=== PATIENT | female | born 1950 | race Caucasian/White ===

== ENCOUNTER → 2024-01-29 17:48 | Outpatient (REF) | payer MEDICARE, OTHER, SELFPAY | LOC: WDC 17:48 | PROVIDERS: ATTENDING PHYSICIAN Family Medicine | DX: Z12.31 Encounter for screening mammogram for malignant neoplasm of breast (principal) | CPT/HCPCS: 77063; 77067 ==

== ENCOUNTER → 2024-02-06 09:48 | Outpatient (REF) | payer MEDICARE, OTHER, SELFPAY | LOC: WDC 09:48 | PROVIDERS: ATTENDING PHYSICIAN Family Medicine | DX: R92.8 Other abnormal and inconclusive findings on diagnostic imaging of breast (principal) | CPT/HCPCS: 76642 ==

== ENCOUNTER → 2024-08-04 14:54 | Outpatient (REF) | payer MEDICARE, OTHER, SELFPAY | LOC: WDC 14:54 | PROVIDERS: ATTENDING PHYSICIAN Family Medicine | DX: R92.8 Other abnormal and inconclusive findings on diagnostic imaging of breast (principal) | CPT/HCPCS: 77061; 77065 ==

== ENCOUNTER → 2025-01-19 14:44 | Outpatient (REF) | payer MEDICARE, OTHER, SELFPAY | LOC: WDC 14:44 | PROVIDERS: ATTENDING PHYSICIAN Family Medicine | DX: Z12.31 Encounter for screening mammogram for malignant neoplasm of breast (principal) | CPT/HCPCS: 77063; 77067 ==

== ENCOUNTER 2025-01-21 11:21 | Emergency (ER) | payer MEDICARE, OTHER, SELFPAY ==
[2025-01-21 11:22] VITALS: BP 170/95
--- NOTE | 2025-01-21 11:32 | EDRN ---
Patient in the room, was able to stand and get into bed without difficulty
--- NOTE | 2025-01-21 12:00 | EDRN ---
Patient ambulated to the bathroom and back in bed without difficulty
--- NOTE | 2025-01-21 12:46 | ED.GENMED ---
History of Present Illness
General
Chief Complaint: Fall
Source: patient
Exam Limitations: none
Time Seen by Provider: 01/21/25 11:28
Nursing documentation reviewed up to this point in time: agreed with
History of Present Illness
History of Present Illness:
The patient is a pleasant 74-year-old female who reports that she was bending forward to pick something off the ground, stumbled and fell backwards. Patient reports that when she tried to get up, she fell again. Patient reports that she fell onto
her right side. She did not hit her head. She denies neck pain, chest pain and back pain. Patient reports pain near her right clavicle area and right shoulder. Patient also reports right hip pain. She reports she is able to walk but with some
discomfort. Patient denies weakness and numbness. She was previously feeling well. Patient is not on blood thinners. Patient reports that her right hip pain gets slightly worse when she turns her leg out but otherwise could flex and extend her
right hip without difficulty.
Past History
Past History
ED Past Medical History: Hypercholesterolemia
ED Past Surgical History: Orthopedic
Social History
Tobacco: Non-smoker
Drug: None
Personal:
Living: with family
Employment: Other
Family History
Family History: CAD
Review of Systems
Review of Systems
Allergies reviewed?: Yes
All Other Systems: ROS reviewed and negative except as documented in HPI and ROS
Constitutional: Reports no symptoms
EENT: Reports no symptoms
Respiratory: Reports no symptoms
Cardiac: Reports no symptoms
ABD/GI: Reports no symptoms
: Reports no symptoms
Musculoskeletal: Reports joint pain
Skin: Reports no symptoms
Neurological: Reports no symptoms
Endocrine: Reports no symptoms
Hematologic/Lymphatic: Reports no symptoms
Psychiatric: Reports no symptoms
Phy Exam
Physical Exam
Physical Exam:
Physical Exam
General: no apparent distress, not acutely ill. Atraumatic appearing face and head
Neck: supple. Nontender C-spine
Heart: s1/s2 regular rate and rhythm, no chest wall tenderness. No vertebral spine tenderness
Lungs: no acute respiratory distress. clear bilaterally
Abdomen: Soft, nontender
Neuro: alert and oriented. no focal neurological deficits. 5 out of 5 strength in all extremities. Cranial nerves equal and symmetric bilaterally
Skin: no rash
Psychiatric: well kept. interactive and cooperative
Extremities: Patient has no deformity or swelling of chest wall, nor right upper or lower extremity. Patient able to fully extend at right shoulder with minimal pain. Patient has mild discomfort in right hip when she rotates
her hip outward but is able to fully extend and flex right hip and right knee with minimal pain. Strong pulses in bilateral upper and lower extremities
Course
Orders/Labs/Results
Orders:
Orders
01/21/25 11:49
Hip, Right 2-3 Views [CR Hip - RT w/wo Pel 2-3 Vw*] Urgent
Comment:
Reason For Exam: fall, R hip pain
Include a pelvis x-ray?: Yes
01/21/25 11:50
Clavicile, Right Complete CR [CR Clavicle - Right Complete] Urgent
Comment:
Reason For Exam: R shoulder and clavicle pain
Shoulder, Right 2 Views [CR Shoulder - Right Min 2 View] Urgent
Comment:
Reason For Exam: fall, R shoulder and upper arm pain
01/21/25 13:23
Acetaminophen [Tylenol] 1,000 mg PO NOW STA
Vital Signs
Initial and Last Documented VS:
Initial Vital Signs
Temp Pulse Resp BP Pulse Ox
97.8 F 78 18 170/95 99
01/21/25 11:22 01/21/25 11:22 01/21/25 11:22 01/21/25 11:22 01/21/25 11:22
Last Documented Vital Signs
Temp Pulse Resp BP Pulse Ox
97.8 F 78 18 170/95 99
01/21/25 11:22 01/21/25 11:22 01/21/25 11:22 01/21/25 11:22 01/21/25 11:22
MDM/Problems Addressed
Differential Diagnosis Includes:
Right hip dislocation, right hip fracture, right humeral fracture, right clavicle fracture
MDM/Problems Addressed:
Patient presents with acute right hip and right shoulder pain after stumble and fall
Acute Exacerbation and/or Progression of Chronic Illness:
Patient is acutely hypertensive likely due to pain and anxiety
Acute Exacerbation and/or Progression of Chronic Illness: HTN
*Radiology
Radiology exam reviewed: preliminary read by ED provider (Right clavicle, right shoulder and right hip and pelvis x-rays reviewed by me. No acute fracture seen.) and radiology read reviewed
*Pulse Oximetry
Patient hypoxic: no
*EKG
Interpreted by ED Provider?: NA
*Ammunition And Explosives Handler Interpretation
Rate: Ammunition And Explosives Handler- N/A
*Critical Care Note
Total Time (30-74mins, 75-104mins- exclusive of procedures): Not Applicable
Data Reviewed
Review of Other/Old Records Reveals: Testing (Stress echo done in 2021 which shows moderate to low risk)
Source: patient
Update Note
Update Note:
1:20 PM patient up walking to the bathroom without difficulty. Bearing weight on bilateral legs. X-ray showed no evidence of fracture. Patient likely has contusion.
ED Attending Note
-
Portions of this chart may have been created with voice recognition software.� Occasional wrong word or��sound alike� substitutions may have occurred due to the inherent limitations of voice recognition software.
Discharge Plan
Departure
Patient Disposition: Home (Routine Discharge)
Date of Disposition: 01/21/25
Time of Disposition: 13:23
Patient with high blood pressure during this ER visit?: Yes
Condition: Good
Covid-19: Not Applicable
Discharge Problem:
Fall, Contusion of right shoulder region, Contusion of right hip
Instructions: Contusion (DC), Preventing falls in adults, BLOOD PRESSURE
Prescriptions:
No Action
meclizine 25 mg tablet
25 mg PO TID PRN (Reason: dizziness) Qty: 14 0RF
Referrals:
Lorie Andrews MD [Family Provider] -
Activity Restrictions/Additional Instructions:
Take 1000 mg of Tylenol every 4-6 hours for pain. Follow-up with your doctor in 3 days if you are still having significant pain in your shoulder and/or hip.
Interventions
Interventions:
*Risk Screen - Suicide Last Done: 01/21/25 11:22
*General Assessment Last Done: 01/21/25 11:22
*Neglect/Abuse Screening Last Done: 01/21/25 11:22
*ED COVID-19 Vaccine History Last Done: 01/21/25 11:22
ED-Musculoskeletal Assessment Last Done: 01/21/25 12:49
ED- Neurological Assessment Last Done: 01/21/25 12:49
ED-Skin Assessment Last Done: 01/21/25 12:49
Discharge Date and Time
Print Language: ARMENIAN
--- NOTE | 2025-01-21 13:21 | EDRN ---
Patient updated on things, Dr. myles in speaking with patient.
[2025-01-21] MEDS: TYLENOL 1000 MG PO (13:27)
== END 2025-01-21 13:46 | disposition home or self-care (01) ==
LOC: EMR 11:21
PROVIDERS: EMERGENCY PHYSICIAN Emergency Medicine; FAMILY PHYSICIAN Family Medicine
DX: S40.011A Contusion of right shoulder, initial encounter (principal); S70.01XA Contusion of right hip, initial encounter; W01.0XXA Fall on same level from slipping, tripping and stumbling without subsequent striking against object, initial encounter; E78.00 Pure hypercholesterolemia, unspecified; I10 Essential (primary) hypertension
CPT/HCPCS: 99284; 73000; 73030; 73502

== ENCOUNTER 2025-01-29 08:45 | Emergency (ER) | payer MEDICARE, OTHER, SELFPAY ==
[2025-01-29] VITALS (7 sets, daily range): BP systolic 160–217; BP diastolic 59–92; BMI 28.4
--- NOTE | 2025-01-29 08:56 | ED.GENMED ---
History of Present Illness
General
Chief Complaint: Musculo-Skeletal Complaint
Source: patient, records and ambulance crew
Exam Limitations: none
Time Seen by Provider: 01/29/25 08:47
Nursing documentation reviewed up to this point in time: agreed with
History of Present Illness
History of Present Illness:
74-year-old female with a past medical history as noted presents to the ER for evaluation of right hip pain. Patient had a fall last week was seen in this emergency room; she said she had hip pain at that time but had normal x-rays. Since then she
reports increasing pain in the right hip/groin and today was having trouble walking due to the pain which prompted her to return to the emergency room. Pain is located in the right lateral hip/buttock and radiates towards the right groin. Worse
with weightbearing, no relieving factors noted�took 4 Advil this morning and applied lidocaine patches without adequate pain control. She denies any associated abdominal pain. She denies any associated urinary symptoms. She has not had any
radicular symptoms/shooting pains. No numbness or weakness in the leg. She denies any other complaints.
Past History
Past History
ED Past Medical History: Hypercholesterolemia
ED Past Surgical History: Orthopedic
Social History
Tobacco: Non-smoker
Drug: None
Personal:
Living: with family
Employment: Other
Family History
Family History: CAD
Review of Systems
Review of Systems
All Other Systems: ROS reviewed and negative except as documented in HPI and ROS
Constitutional: Denies fever or chills
Cardiac: Denies chest pain
ABD/GI: Denies abdominal pain
: Denies dysuria, flank pain or bleeding
Musculoskeletal: Reports joint pain; Denies back pain
Neurological: Denies headache, weakness or numbness
Phy Exam
Physical Exam
Physical Exam:
General: Awake, alert, appears uncomfortable
Head: Normocephalic, atraumatic
Eyes: Conjunctiva normal
Throat: Airway intact, handling secretions
Neck: Trachea midline, supple without meningismus
Lungs: Breathing comfortably no distress
Heart: Regular rate
Abd: Soft, non distended, nontender to deep palpation
Back: No tenderness in the thoracic or lumbar region
Neuro: Cranial nerves grossly intact, speech fluid
Skin: no rash, no bruising, no abrasions in the area of concern
Extremities: Patient has mild tenderness in the right lateral hip essentially over the trochanter; she has mild pain on range of motion of the right hip and significant pain with axial load on the right leg; no swelling or pain in the right knee or
ankle and strong distal pulse in the right lower extremity;no edema in extremities, equal pulses in all extremities
Scores
Heart Failure Risk
Heart Failure Risk Score: Not Applicable
Heart Score for Chest Pain Patients
STEMI patient?: Not applicable
Withdrawal Assessment of Alcohol
Withdrawal Assessment Completed?: Not applicable
Course
Orders/Labs/Results
Orders:
Orders
01/29/25 08:55
CT Abd/pel Without Iv Or Oral Urgent
Comment:
Reason For Exam: right hip/flank pain s/p fall
Oxycodone [Roxicodone] 5 mg PO NOW STA
01/29/25 10:04
Pt Eval And Treat Urgent
Activity Level: With Assistance
01/29/25 10:13
Case Management Consult ONCE
Case Management Consult: VN/Home Care
Vital Signs
Initial and Last Documented VS:
Initial Vital Signs
Temp Pulse Resp BP Pulse Ox
36.6 C 84 16 217/91 98
01/29/25 08:51 01/29/25 08:51 01/29/25 08:51 01/29/25 08:51 01/29/25 08:51
Last Documented Vital Signs
Temp Pulse Resp BP Pulse Ox
36.6 C 72 16 197/92 96
01/29/25 08:51 01/29/25 10:03 01/29/25 10:03 01/29/25 10:02 01/29/25 10:02
MDM/Problems Addressed
Differential Diagnosis Includes:
Right hip pain: Suspect likely secondary to trauma either an occult hip fracture, contusion, traumatic bursitis; other causes for hip pain including nephrolithiasis, UTI, appendicitis considered�intra-abdominal infection less likely with no
abdominal tenderness
MDM/Problems Addressed:
74-year-old female presents for evaluation of continued right hip pain for the past week; had a ground-level fall last week that seemed to precipitate this pain. X-rays in the ER last week negative but patient having increased pain and difficulty
weightbearing which prompted ER visit. Hypertensive otherwise normal vitals. Physical exam as above. Will plan to check CT to rule out occult fracture or other acute abnormality. Treat pain. Reassess after the above.
CT shows no occult fracture or other acute pathology. Patient says pain greatly improved with pain medication here. Suspect likely traumatic bursitis with some degree of underlying arthritis as she said she was having some pain in the hip even
prior to fall. Discussed with PT and case management to see if we can arrange for some home care/PT. Will refer to orthopedist for outpatient follow-up. Short-term pain control. Patient and daughter very comfortable with this plan. All
questions answered.
Acute Exacerbation and/or Progression of Chronic Illness:
Acutely hypertensive likely pain related�treat pain but hold on emergent antihypertensives for now
Acute Exacerbation and/or Progression of Chronic Illness: HTN
*Radiology
Radiology exam reviewed: radiology read reviewed
*Pulse Oximetry
Patient hypoxic: no
*Critical Care Note
Total Time (30-74mins, 75-104mins- exclusive of procedures): Not Applicable
Data Reviewed
Source: patient, records and ambulance crew
Patient Management
Discussion with other providers: Other (Discussed with PT, case management)
ED Attending Note
-
Portions of this chart may have been created with voice recognition software.� Occasional wrong word or��sound alike� substitutions may have occurred due to the inherent limitations of voice recognition software.
Discharge Plan
Departure
Patient with high blood pressure during this ER visit?: Yes
Discharge Problem:
Hip pain, right, Hypertension
Instructions: Hip Pain ED, BLOOD PRESSURE
Prescriptions:
New
oxycodone 5 mg tablet
5 mg PO TID PRN (Reason: Pain) Qty: 10 0RF
No Action
meclizine 25 mg tablet
25 mg PO TID PRN (Reason: dizziness) Qty: 14 0RF
Referrals:
Colleen Bryant I., DO [Active] - Call in 1-3 days for appt (Orthopedist)
Denver Kimble CRNP [Family Provider] -
Activity Restrictions/Additional Instructions:
Thank you for visiting the Emergency Department at [facility].
1. Please schedule a follow up appointment as directed. Call first thing tomorrow morning to make an appointment.
2. If indicated, please take your medications as instructed and indicated on discharge paperwork.
3. If any of your symptoms do not improve, or persist, or become more severe within 6-12 hours, please return to the emergency department for further care.
4. Please return to the emergency department if you develop a headache, neck pain/stiffness, fever greater than 100.4F, chest pain, shortness of breath, persistent nausea, vomiting, slurred speech, difficulty walking, numbness/tingling, weakness,
signs of infection or any other symptoms that are worrisome to you.
Please call [phone] if you have any questions.
Interventions
Interventions:
*Risk Screen - Suicide Last Done: 01/29/25 08:50
*General Assessment Last Done: 01/29/25 08:50
*Neglect/Abuse Screening Last Done: 01/29/25 08:50
*ED- Fall Risk Assessment Last Done: 01/29/25 08:50
*ED COVID-19 Vaccine History Last Done: 01/29/25 08:50
ED-Musculoskeletal Assessment Last Done: 01/29/25 08:50
Discharge Date and Time
Print Language: YAKUT
[2025-01-29] MEDS: ROXICODONE 5 MG PO ×2 (08:59→11:12)
[2025-01-29] MEDS: TYLENOL 1000 MG PO (11:14)
--- NOTE | 2025-01-29 12:06 | CM ---
Met with patient and her neighbor, Cece, at bedside in ED; CM consult completed
Patient reports she lives alone; 2 story home; bedroom and bath on 1st floor; bath has stall shower, independent with ADLs, drives; retired
Neighbor, Cece, reported she will transport patient home and check in on her
PT provided rolling walker and commode
Patient is agreeable to Home Health/VN; agency options identified; VN is preference; Referral sent to [facility] liaison via [place] [facility]
Plan: Discharge to home today with home health services and DME
[2025-01-29] MEDS: TORADOL 15 MG IM (12:29)
--- NOTE | 2025-01-29 13:06 | VNURNOTE ---
[facility] liaison met with patient at bedside. She was getting dressed with assist of the patient md do resident urgent care. Explained [facility] services, frequency, homebound status. Patient lives alone. Explained that [facility] will contact her within a few days
after DC to arrange visits. Patient agreeable. Referral placed in [facility].
== END 2025-01-29 13:04 | disposition home or self-care (01) ==
LOC: EMR 08:45
PROVIDERS: EMERGENCY PHYSICIAN Emergency Medicine; FAMILY PHYSICIAN Registered Nurse
DX: M25.551 Pain in right hip (principal); I10 Essential (primary) hypertension
CPT/HCPCS: 99284; 96372; 74176

== ENCOUNTER 2025-01-30 19:02 | Inpatient (IN) | payer MEDICARE, OTHER, SELFPAY ==
[2025-01-30 16:07] VITALS: BP 185/77
--- NOTE | 2025-01-30 16:25 | ED.GENMED ---
History of Present Illness
General
Chief Complaint: Extremity Pain (non-traumatic)
Source: patient and records
Exam Limitations: none
Time Seen by Provider: 01/30/25 16:15
History of Present Illness
History of Present Illness:
74yoF with a history of hyperlipidemia presenting via EMS for evaluation of R hip pain. Patient was seen in the ED on after a fall and right hip injury. She had normal x-rays at that time and was diagnosed with a contusion of the right hip.
Patient presented to the ED yesterday for ongoing pain. She had a CT scan which was negative for any occult fractures. She was evaluated by PT and case management with plan for home PT. She was given a prescription for oxycodone. Patient
presents again with severe pain to her right hip. She states she is unable to tolerate this pain and almost passed out due to the degree of pain. Pain is worse with movement and weightbearing. She has been taking oxycodone but it has not helped.
She denies any new trauma to the area. No paresthesias, incontinence, fevers. Patient's daughter recently had a hysterectomy and is unable to help take care of her at home.
Past History
Past History
ED Past Medical History: Hypercholesterolemia
ED Past Surgical History: Orthopedic
Social History
Tobacco: Non-smoker
Drug: None
Personal:
Living: with family
Employment: Other
Family History
Family History: CAD
Phy Exam
Physical Exam
Physical Exam:
Appears uncomfortable due to pain, nontoxic
General Physical Exam
General Presentation: well appearing
General Skin: warm and dry
General Habitus: elderly
General Mental: alert
ENT Exam
ENT Exam: normocephalic
Pulmonary Exam
Pulmonary Exam: no respiratory distress
Neurological Exam
Neurological Exam: alert
[place] Coma Scale
Eye Opening: Spontaneous
Verbal Response: Oriented
Motor Response: Obeys Commands
GCS Total Score: 15
Musculoskeletal Exam
Musculoskeletal Exam: other (R hip: Normal to inspection without deformity. No tenderness to palpation of the joint but pain elicited with ROM. No pitting edema to the leg. 2+ DP pulse. )
Skin Exam
Skin Exam: normal color and warm/dry
Psychiatric Exam
Psychiatric Exam: normal mood/affect
Course
Orders/Labs/Results
Orders:
Orders
01/30/25 16:24
HYDROmorphone [Dilaudid] 0.5 mg IV NOW STA
01/30/25 16:43
Complete Blood Count/With Diff Urgent
Comprehensive Metabolic Panel Urgent
01/30/25 17:42
Ketorolac [Toradol] 15 mg IV NOW STA
Abnormal Lab Results
01/30/25
16:43
WBC 13.7 H 10^3/uL
(4.8-10.8)
Plt Count 438 H 10^3/uL
(130-400)
Absolute Neuts (auto) 9.3 H 10^3/uL
(1.4-6.5)
Absolute Monos (auto) 1.0 H 10^3/uL
(0.1-0.6)
BUN 28 H mg/dl
(7-17)
Glucose 135 H mg/dl
(70-99)
01/30/25 16:43
01/30/25 16:43
Vital Signs
Initial and Last Documented VS:
Initial Vital Signs
Pulse Resp BP Pulse Ox
82 18 185/77 99
01/30/25 16:07 01/30/25 16:07 01/30/25 16:07 01/30/25 16:07
Last Documented Vital Signs
Pulse Resp BP Pulse Ox
82 18 185/77 99
01/30/25 16:07 01/30/25 16:07 01/30/25 16:07 01/30/25 16:07
MDM/Problems Addressed
Differential Diagnosis Includes:
74yoF here with ongoing R hip pain. 3rd ED visit for the same after a fall about 10 days ago. Seen in ED yesterday and had CT which was negative for occult fractures. Here with ongoing pain and ambulatory dysfunction. She is hypertensive with
otherwise stable vitals. RLE is neurovascularly intact. Differential diagnosis includes but is not limited to: Contusion, bursitis, muscular, doubt occult fracture given normal CT yesterday
Will check basic labs and give IV Dilaudid for pain. Will admit for PT evaluation and further management.
*Critical Care Note
Total Time (30-74mins, 75-104mins- exclusive of procedures): Not Applicable
ED Attending Note
-
Portions of this chart may have been created with voice recognition software.� Occasional wrong word or��sound alike� substitutions may have occurred due to the inherent limitations of voice recognition software.
Discharge Plan
Departure
Patient Disposition: Admit
Date of Disposition: 01/30/25
Time of Disposition: 17:44
Presentation/result/management discussed w/ accepting MD/DO: Hospitalist
Discharge Problem:
Right hip pain, Ambulatory dysfunction
Prescriptions:
No Action
aspirin 325 mg Tablet
325 mg PO HS
acetaminophen [Tylenol Extra Strength] 500 mg Tablet
1,000 mg PO Q6HPRN PRN (Reason: mild pain)
ibuprofen [Advil] 200 mg Tablet
800 mg PO Q6HPRN PRN (Reason: mild pain)
ezetimibe 10 mg Tablet
10 mg PO HS
coenzyme Q10 [CoQ-10] 100 mg Capsule
100 mg PO DAILY
cholecalciferol (vitamin D3) [Vitamin D3] 50 mcg (2,000 unit) Tablet
50 mcg PO DAILY
omega [id number] oil [Fish Oil] 1,200 (144-216) mg Capsule
1 cap PO BID
Patient Comments:
01/30/25: Patient brought their own brand
multivit with min-folic acid [Multivitamin Gummies] 200 mcg Tablet,Chewable
200 tab PO DAILY
Patient Comments:
01/30/25: Patient brought their own brand
Leqvio 284 mg/1.5 mL Syringe
284 mg SC [id number]
oxycodone 5 mg tablet
5 mg PO TIDPRN PRN (Reason: severe pain)
Referrals:
Denver Kimble CRNP [Family Provider] -
Discharge Date and Time
Print Language: URDU
[2025-01-30 16:50] LABS: % Basophils 0.3 % (0-2); % Eosinophils 0.8 % (0-6); % Immature Granulocytes 0.3 % (0-0.5); % Lymphocytes 23.4 % (20.5-51.1); % Monocytes 7.5 % (1.7-9.3); % Neutrophils 67.7 % (42.2-75.2); Absolute Eosinophils 0.1 10^3/uL (0-0.7); Absolute Lymphocytes 3.2 10^3/uL (1.2-3.4); Absolute Neutrophils 9.3 10^3/uL (1.4-6.5); Hematocrit 42.4 % (37.0-47.0); Hemoglobin 14.1 g/dL (12.0-16.0); Mean Corp Hgb Conc. 33.3 g/dL (33.0-37.0); Mean Corpuscular Hgb 27.9 pg (27.0-31.0); Mean Platelet Volume 8.7 fL (7.4-10.4); Nucleated Red Blood Cells % 0 %; Platelet Count 438 10^3/uL (130-400); Red Blood Cell Count 5.05 10^6/uL (4.20-5.40); Red Cell Dist. Width 13.6 % (11.5-14.5); White Blood Cell Count 13.7 10^3/uL (4.8-10.8)
[2025-01-30] MEDS: DILAUDID 0.5 MG IV (16:59)
[2025-01-30 17:15] LABS: ALT (SGPT) 33 U/L (0-35); AST (SGOT) 36 U/L (14-36); Albumin 4.8 g/dl (3.5-5.0); Alkaline Phosphatase 98 U/L (38-126); Blood Urea Nitrogen 28 mg/dl (7-17); Calcium 9.7 mg/dl (8.4-10.2); Carbon Dioxide 25 mmol/L (22-30); Chloride 104 mmol/L (98-107); Glucose 135 mg/dl (70-99); Potassium 4.7 mmol/L (3.5-5.1); Sodium 140 mmol/L (135-145); Total Bilirubin 0.6 mg/dl (0.2-1.3); Total Protein 7.1 g/dl (6.3-8.2); eGFR > 60.00
[2025-01-30] MEDS: TORADOL 15 MG IV ×2 (18:04→21:53)
[2025-01-30 18:33] VITALS: BP 176/89
--- NOTE | 2025-01-30 18:33 | HPS.HSE ---
Addendum entered and electronically signed by Gary Vincent MD 01/30/25 19:15:
Text d/w Ortho- to fully rule out hip injury, you could get an MRI of the hip to see if there is any soft tissue injury that would create this issue or stress fracture not picked up on CT.
- Ordered MRI of Rt Hip
Original Note:
Family Physician
-
Family Physician: AGUILA Gonzales
Chief Complaint
-
ongoing Rt Hip pain s/p fall
History of Present Illness
4F HX HX HLD , [facility] for evaluation of R hip pain. It is 3rd visit to ER
- was seen in the ED on after a fall and right hip injury- normal x-rays was diagnosed with a contusion of the right hip. - was seen at ED yesterday for ongoing pain- CT scan which was negative for any occult fractures.
- was evaluated by PT and case management with plan for home PT. She was given a prescription for oxycodone.
- Today patient presents again with severe pain to her right hip and unable to tolerate this pain and almost passed out due to the degree of pain.
- Pain is worse with movement and weightbearing. -
- oxycodone but it has not helped.
- She denies any new trauma to the area.
- No paresthesias, incontinence, fevers.
- Patient's daughter recently had a hysterectomy and is unable to help take care of her at home.
Medical History
Past Medical History
Past Medical History: Reports Hypercholesterolemia
Past Surgical History: Reports None
Social History
Tobacco: Non-smoker
Alcohol: None
Living: With Family
Family History
Family History: Not pertinent
Allergies / Home Medications
Allergies reflects when Allergies were last updated in [employer].
Home Medications with original date entered in [employer]
Allergy/Medication List:
Allergies
Allergy/AdvReac Type Severity Reaction Status Date / Time
Penicillins Allergy Rash Verified 06/29/22 19:46
prednisone Allergy Unknown Verified 01/21/25 11:24
Home Medications
acetaminophen 500 mg tablet (Tylenol Extra Strength) 1,000 mg PO Q6HPRN PRN mild pain 01/30/25
aspirin 325 mg tablet 325 mg PO HS 01/30/25
cholecalciferol (vitamin D3) 50 mcg (2,000 unit) tablet (Vitamin D3) 50 mcg PO DAILY 01/30/25
coenzyme Q10 100 mg capsule (CoQ-10) 100 mg PO DAILY 01/30/25
ezetimibe 10 mg tablet 10 mg PO HS 01/30/25
ibuprofen 200 mg tablet (Advil) 800 mg PO Q6HPRN PRN mild pain 01/30/25
inclisiran 284 mg/1.5 mL subcutaneous syringe (Leqvio) 284 mg SC [id number] 01/30/25
multivitamin with minerals-folic acid 200 mcg chewable tablet (Multivitamin Gummies) 200 tab PO DAILY 01/30/25
omega 8-ztn-yti-fish oil 1,200 mg (144 mg-216 mg) capsule (Fish Oil) 1 cap PO BID 01/30/25
oxycodone 5 mg tablet 5 mg PO TIDPRN PRN severe pain 01/30/25
Review of Systems
-
Constitutional: Reports No Symptoms
EENT: Reports No Symptoms
Respiratory: Reports No Symptoms
Cardiac: Reports No Symptoms
Abdomen/GI: Reports No Symptoms
: Reports No Symptoms
Musculoskeletal: Reports See HPI
Skin: Reports No Symptoms
Neurological: Reports No Symptoms
Endocrine: Reports No Symptoms
Hematologic/Lymphatic: Reports No Symptoms
Psych: Reports No Symptoms
Physical Exam
Vital Signs
Vital Signs
Pulse Resp BP Pulse Ox
82 18 185/77 99
01/30/25 16:07 01/30/25 16:07 01/30/25 16:07 01/30/25 16:07
Physical Exam
General: Well Developed, Well Nourished and No Apparent Distress
HEENT: NormoCephalic, Moist mucous membranes and Atraumatic
Respiratory: Clear
Cardiac: S1/S2 and Regular Rhythm; No Murmur or Rub
GI: Soft, Non Tender, Non Distended and Normal Bowel Sounds; No Organomegaly
Rectal: Deferred by Provider
Musculoskeletal: Edema, Right Lower Extremity (Rt Hip : No pain with log rolling, flexion. No pointtenderness at Rt Hip, point tenderness at Rt SI joint ), No Edema and Other (Normal to inspection without deformity. No tenderness to palpation of the
joint but pain elicited with ROM. No pitting edema to the leg. 2+ DP pulse. )
Skin: No Rash
Neuro: Nonfocal/grossly intact
Psych: Calm
Laboratory Results
-
01/30/25 16:43
01/30/25 16:43
Laboratory Results
Total Bilirubin 0.6 mg/dl (0.2-1.3) 01/30/25 16:43
AST 36 U/L (14-36) 01/30/25 16:43
ALT 33 U/L (0-35) 01/30/25 16:43
Alkaline Phosphatase 98 U/L (38-126) 01/30/25 16:43
Data Reviewed
-
CT Scan: Report Reviewed by me
Lab Data: Labs Reviewed by me
Old Records: Reviewed
Impression/Plan
-
PE
Gen: NAD when lying
HEENT: anicteric
Neck: supple
Lungs: CTA
Cor: RRR S1 S2
Abdomen: soft benign
RF TEST TECHNICIAN: AAO3
MS: R hip:
Skin Exam
Psych:
Abnormal Lab
01/30/25
16:43
WBC 13.7 H
Plt Count 438 H
Absolute Neuts (auto) 9.3 H
Absolute Monos (auto) 1.0 H
BUN 28 H
Glucose 135 H
01/21/25 Hip XR: No evidence of acute osseous injury.
Moderate bilateral hip osteoarthritis
Moderate fecal material in the right colon.
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
01/29/25 CT Abd/pel Without Iv Or Oral for right hip and flank pain following a fall.
1. No acute findings within the abdomen or pelvis.
2. No pelvic or hip fractures appreciated. No rib fractures. No inflammatory stranding or hematomas within the abdominal wall.
3. Additional findings above.
ASSESSMENT & PLAN
Acute ambulatory dysfunction
R Hip pain ? Bursitis
- NEG XR
- NEG CT Pelvis for occult Fx
- Failed OP pain control
- PRN Toradol for mod/severe pain
- NSAIDS PRN mild/mod pain control
- add PO PPI daily
- PT eval
HLD
- on Ezetimibe
DVT Px: SQH
Full code
IP MS
[2025-01-30 20:40] VITALS: BP 130/89; BMI 28.3
[2025-01-30] MEDS: HEPARIN SC (21:18)
[2025-01-30] MEDS: TYLENOL 1000 MG PO (21:19)
[2025-01-30] MEDS: NSS 1000 IV (21:19)
[2025-01-30 23:00] VITALS: BP 161/91
[2025-01-31] MEDS: TORADOL 10 MG IV ×3 (04:25→18:25)
--- NOTE | 2025-01-31 05:05 | PTCARENOTE ---
Received pt from ED, unable to bear weight- pulled over from stretcher. Pt does not want to take her scheduled medication that we provide and only wants to take her own from home. Explained the importance of having it documented on what she takes.
[2025-01-31 06:34] LABS: Mean Corp Hgb Conc. 33.3 g/dL (33.0-37.0); Mean Corpuscular Hgb 28.2 pg (27.0-31.0); Mean Corpuscular Volume 84.6 fL (81.0-99.0); Mean Platelet Volume 8.9 fL (7.4-10.4); Platelet Count 436 10^3/uL (130-400); Red Blood Cell Count 4.61 10^6/uL (4.20-5.40); Red Cell Dist. Width 13.6 % (11.5-14.5); White Blood Cell Count 12.2 10^3/uL (4.8-10.8)
[2025-01-31 07:01] LABS: Blood Urea Nitrogen 24 mg/dl (7-17); Calcium 9.5 mg/dl (8.4-10.2); Carbon Dioxide 23 mmol/L (22-30); Chloride 110 mmol/L (98-107); Estimated Creatinine Clearance 47 ml/min; Glucose 120 mg/dl (70-99); Potassium 4.7 mmol/L (3.5-5.1); Sodium 141 mmol/L (135-145); eGFR > 60.00
[2025-01-31 07:55] VITALS: BP 162/66
--- NOTE | 2025-01-31 08:05 | W.PN.HOSP.TC ---
Today's Communication/Plan
-
Await rehab evaluation
MRI
Pain control
Fall risk
Assessment / Plan
Assessment / Plan
General: Well Developed, Well Nourished and No Apparent Distress
HEENT: NormoCephalic, Moist mucous membranes and Atraumatic
Respiratory: Clear
Cardiac: S1/S2 and Regular Rhythm; No Murmur or Rub
GI: Soft, Non Tender, Non Distended and Normal Bowel Sounds; No Organomegaly
Rectal: Deferred by Provider
Musculoskeletal: Edema, Right Lower Extremity (Rt Hip : No pain with log rolling, flexion. No pointtenderness at Rt Hip, point tenderness at Rt SI joint ), No Edema and Other (Normal to inspection without deformity. No tenderness to palpation of the
joint but pain elicited with ROM. No pitting edema to the leg. 2+ DP pulse. )
Skin: No Rash
Neuro: Nonfocal/grossly intact
Psych: Calm
Acute ambulatory dysfunction
R Hip pain ? Bursitis
- NEG XR
-CT abdomen pelvis is negative for occult fracture. It did state a moderate to severe lumbar disc disease
- Failed OP pain control
- PRN Toradol for mod/severe pain
- NSAIDS PRN mild/mod pain control
- add PO PPI daily
- PT eval
HLD
- on Ezetimibe
DVT Px: SQH
d/w with patient daughter at bedside in details
Anticipated Discharge: Within 24 hours
Subjective/Interval History
-
Date of Service: January 31, 2025
states of R hip pain w/ exertion and activity
pain worsened after the fall.
Objective Data
-
Labs:
Laboratory Results
01/31/25
06:11
WBC 12.2 H
Hgb 13.0
Hct 39.0
Plt Count 436 H
Sodium 141
Potassium 4.7
Chloride 110 H
Carbon Dioxide 23
BUN 24 H
Creatinine 0.8
Glucose 120 H
Calcium 9.5
Vital Signs:
Vital Signs
Temp Pulse Resp BP Pulse Ox
97.5 F 82 18 161/91 98
01/30/25 23:00 01/30/25 23:00 01/30/25 23:00 01/30/25 23:00 01/30/25 23:00
[2025-01-31] MEDS: HEPARIN SC (08:17)
[2025-01-31] MEDS: PROTONIX PO (08:18)
[2025-01-31] MEDS: TYLENOL 1000 MG PO ×3 (09:00→21:27)
[2025-01-31] MEDS: HEPARIN 5000 UNITS SC ×2 (10:49→19:49)
[2025-01-31] MEDS: PROTONIX 40 MG PO (10:55)
[2025-01-31 12:52] VITALS: BP 137/86; BP 175/79; PULSE 83; O2SAT 96
--- NOTE | 2025-01-31 13:25 | CM ---
Alert awake oriented patient who lives alone in a 1 story home with 0 steps to enter. She is independent in driving and all ADLs.No adaptive devices.
As per PT last visit was issued commode and walker .
No hx of VN /SNF
Pharmacy [facility] [address]
PCP [employer] Denver Kimble
PCP Will need PT OT evals for dc plan
[2025-01-31 15:55] VITALS: BP 134/73
[2025-01-31] MEDS: NSS 1000 IV (16:18)
[2025-01-31 23:20] VITALS: BP 138/76
[2025-02-01] MEDS: TORADOL 10 MG IV ×2 (00:43→11:38)
[2025-02-01] MEDS: TYLENOL 1000 MG PO ×3 (07:08→21:37)
[2025-02-01 07:30] VITALS: BP 115/69
[2025-02-01] MEDS: HEPARIN 5000 UNITS SC ×2 (08:06→20:12)
[2025-02-01] MEDS: PROTONIX 40 MG PO (08:07)
--- NOTE | 2025-02-01 08:58 | VNURNOTE ---
Chart reviewed. Patient was seen by [facility] liaison in ED on 01/29 and she was DC'ed home that day. [facility] referral accepted in [facility].
[2025-02-01] MEDS: ROXICODONE 5 MG PO (13:30)
--- NOTE | 2025-02-01 14:01 | W.PN.HOSP.TC ---
Today's Communication/Plan
-
Analgesics
PT/OT
OP orthopedics follow-up
Assessment / Plan
Assessment / Plan
#Right hip pain
#Partial tear of the superior gluteal minimus with strains of gluteus medius
-Negative x-ray and CT A/P for fractures; MRI without contrast showed low grade, partial tear
-Failed outpatient analgesics; has improved here with Toradol and other NSAIDs
-Was started on oral PPI due to frequent NSAID administration; renal function stable
-Will need to follow with outpatient orthopedics, plan for course of PT
-May ultimately need surgical correction if deemed candidate by orthopedics
#Dyslipidemia
-No known ASCVD history, currently on ezetimibe
DVT prophylaxis: Subcu heparin
Diet: Low-cholesterol
CODE STATUS: Full code
Disposition: Home health once stable
Anticipated Discharge: Within 24 hours
Subjective/Interval History
-
Date of Service: February 01, 2025
Seen and examined at bedside. No acute events reported overnight. AFVSS this morning.
MRI of the hip today showed partial tear, low-grade of the right gluteal minimus
Outside of her discomfort she denies any other sources of pain or new complaints
Objective Data
-
Vital Signs:
Vital Signs
Temp Pulse Resp BP Pulse Ox
98.4 F 71 18 115/69 96
02/01/25 07:30 02/01/25 07:30 02/01/25 07:30 02/01/25 07:30 02/01/25 10:00
I&O
01/31/25 02/01/25 02/02/25
06:59 06:59 06:59
Intake Total 3240 / 3240
Balance 3240 / 3240
Review of Systems
-
History Source: Patient
All other systems: Reviewed and negative
Physical Exam
-
General: Well Developed, Well Nourished and No Apparent Distress
HEENT: Normocephalic, Atraumatic and Moist Mucous Membranes
Respiratory: Clear to Auscultation and Non Labored Respirations
Cardiac: Regular Rhythm and S1/S2; Negative Murmur, Rub or Gallop
GI: Soft, Nontender, Nondistended and Normal Bowel Sounds
Musculoskeletal: No Clubbing, No Cyanosis, No Edema and Other (No tenderness to palpation of the right glutes)
Skin: Warm, Dry and Normal Turgor; Negative Rash
Neuro: AO x 3 and Nonfocal/Grossly Intact; Negative Tremors
Psych: Calm
Data Reviewed
-
MRI: Report Reviewed by me, Discussed with Patient and Discussed with Family
Labs: Labs Reviewed by me and Discussed with Patient
[2025-02-01 15:30] VITALS: BP 176/91
[2025-02-01 15:47] VITALS: BP 153/84; PULSE 70; O2SAT 97
[2025-02-01 15:52] VITALS: BP 153/84
[2025-02-01] MEDS: DICLOFENAC 1% TOPICAL GEL 4 GRAM TOPICAL (17:56)
[2025-02-01] MEDS: DICLOFENAC 1% TOPICAL GEL 100 GRAM TOPICAL (21:38)
[2025-02-01 23:25] VITALS: BP 132/80
[2025-02-02] MEDS: TORADOL 10 MG PO ×2 (04:39→17:47)
[2025-02-02 07:25] VITALS: BP 149/81
[2025-02-02 08:07] LABS: % Basophils 0.8 % (0-2); % Eosinophils 4.3 % (0-6); % Immature Granulocytes 0.2 % (0-0.5); % Lymphocytes 35.8 % (20.5-51.1); % Monocytes 6.3 % (1.7-9.3); % Neutrophils 52.6 % (42.2-75.2); Absolute Basophils 0.1 10^3/uL (0-0.2); Absolute Eosinophils 0.4 10^3/uL (0-0.7); Absolute Lymphocytes 3.5 10^3/uL (1.2-3.4); Absolute Monocytes 0.6 10^3/uL (0.1-0.6); Absolute Neutrophils 5.1 10^3/uL (1.4-6.5); Hematocrit 37.3 % (37.0-47.0); Hemoglobin 12.6 g/dL (12.0-16.0); Mean Corp Hgb Conc. 33.8 g/dL (33.0-37.0); Mean Corpuscular Hgb 28.4 pg (27.0-31.0); Mean Platelet Volume 9.4 fL (7.4-10.4); Nucleated Red Blood Cells % 0 %; Platelet Count 395 10^3/uL (130-400); Red Blood Cell Count 4.44 10^6/uL (4.20-5.40); Red Cell Dist. Width 13.2 % (11.5-14.5); White Blood Cell Count 9.7 10^3/uL (4.8-10.8)
[2025-02-02] MEDS: DICLOFENAC 1% TOPICAL GEL 4 GRAM TOPICAL ×3 (08:54→17:45)
[2025-02-02] MEDS: TYLENOL 1000 MG PO ×3 (08:55→22:20)
[2025-02-02] MEDS: PROTONIX 40 MG PO (08:55)
[2025-02-02] MEDS: HEPARIN 5000 UNITS SC ×2 (08:55→22:21)
[2025-02-02 09:49] VITALS: BP 123/86; PULSE 61; O2SAT 100
[2025-02-02 09:49] LABS: ALT (SGPT) 29 U/L (0-35); AST (SGOT) 33 U/L (14-36); Alkaline Phosphatase 90 U/L (38-126); Blood Urea Nitrogen 21 mg/dl (7-17); Calcium 9.5 mg/dl (8.4-10.2); Carbon Dioxide 22 mmol/L (22-30); Chloride 107 mmol/L (98-107); Estimated Creatinine Clearance 54 ml/min; Glucose 104 mg/dl (70-99); Potassium 4.8 mmol/L (3.5-5.1); Sodium 140 mmol/L (135-145); Total Bilirubin 0.5 mg/dl (0.2-1.3); eGFR > 60.00
[2025-02-02 10:40] VITALS: BP 123/86; PULSE 63; O2SAT 100
--- NOTE | 2025-02-02 11:24 | W.PN.HOSP.TC ---
Today's Communication/Plan
-
Toradol 10+ Oxy 2.5 as needed
PT/OT
SNF when bed available
Assessment / Plan
Assessment / Plan
#Right hip pain
#Partial tear of the superior gluteal minimus with strains of gluteus medius
-Negative x-ray and CT A/P for fractures; MRI without contrast showed low grade, partial tear
-Failed outpatient analgesics; has improved here with Toradol and other NSAIDs
-Was started on oral PPI due to frequent NSAID administration; renal function stable
-Will need to follow with outpatient orthopedics, plan for course of PT
-Will transition to Toradol 10 mg with oxy 2.5 mg for pain control
#Dyslipidemia
-No known ASCVD history, currently on ezetimibe
DVT prophylaxis: Subcu heparin
Diet: Low-cholesterol
CODE STATUS: Full code
Disposition: Medically stable for discharge to SNF when bed available and insurance approved
Anticipated Discharge: Within 24 hours
Subjective/Interval History
-
Date of Service: February 02, 2025
Seen and examined at the bedside. No acute events reported overnight. AFVSS this morning
Patient states she feels well today, still has some right posterior hip pain. Improved with oxycodone though developed some 'loopiness'
Denies any other new complaints as of this morning.
Objective Data
-
Labs:
Laboratory Results
02/02/25
07:37
WBC 9.7
Hgb 12.6
Hct 37.3
Plt Count 395
Sodium 140
Potassium 4.8
Chloride 107
Carbon Dioxide 22
BUN 21 H
Creatinine 0.7
Glucose 104 H
Calcium 9.5
Total Bilirubin 0.5
AST 33
ALT 29
Alkaline Phosphatase 90
Vital Signs:
Vital Signs
Temp Pulse Resp BP Pulse Ox
98.0 F 68 18 149/81 97
02/02/25 07:25 02/02/25 07:25 02/02/25 07:25 02/02/25 07:25 02/02/25 08:20
I&O
02/01/25 02/02/25 02/03/25
06:59 06:59 06:59
Intake Total 3240 / 3240 960 / 960
Balance 3240 / 3240 960 / 960
Review of Systems
-
History Source: Patient
All other systems: Reviewed and negative
Physical Exam
-
General: Well Developed, No Apparent Distress and Comfortable
HEENT: Normocephalic, Atraumatic, Moist Mucous Membranes and Anicteric
Respiratory: Clear to Auscultation and Non Labored Respirations
Cardiac: Regular Rhythm and S1/S2; Negative Murmur, Rub or Gallop
GI: Soft, Nontender, Nondistended and Normal Bowel Sounds
Musculoskeletal: No Clubbing, No Cyanosis, No Edema and Other (Nontender to light palpation)
Skin: Warm, Dry and Normal Turgor; Negative Rash
Neuro: AO x 3 and Nonfocal/Grossly Intact
Psych: Calm
Data Reviewed
-
Labs: Labs Reviewed by me and Discussed with Patient
[2025-02-02 15:20] VITALS: BP 128/76
--- NOTE | 2025-02-02 16:46 | CM ---
Spoke with patient's daughter to discuss SNF options. She stated that she would like for patient to go to either [facility] or [facility]. Referrals sent to both. Will f/u with facilities to determine availability.
Plan: Case management will continue to follow and assist with discharge planning. SNF.
[2025-02-02] MEDS: ROXICODONE 2.5 MG PO (17:48)
[2025-02-02] MEDS: DICLOFENAC 1% TOPICAL GEL 100 GRAM TOPICAL (22:17)
[2025-02-02] MEDS: SENOKOT-S 1 TABLET PO (22:36)
[2025-02-02 23:41] VITALS: BP 107/66
[2025-02-03] MEDS: TORADOL 10 MG PO ×2 (08:06→14:59)
[2025-02-03] MEDS: PROTONIX 40 MG PO (08:06)
[2025-02-03] MEDS: TYLENOL 1000 MG PO ×2 (08:06→14:59)
[2025-02-03] MEDS: HEPARIN 5000 UNITS SC (08:06)
[2025-02-03] MEDS: ROXICODONE 2.5 MG PO ×2 (08:06→14:59)
[2025-02-03] MEDS: DICLOFENAC 1% TOPICAL GEL 4 GRAM TOPICAL ×2 (08:06→13:13)
[2025-02-03 08:22] VITALS: BP 126/57
--- NOTE | 2025-02-03 11:25 | W.PN.HOSP.TC ---
Addendum entered and electronically signed by Kahlil Holbrook DO 02/03/25 11:31:
Patient on PCSK9 inhibitor and ezetimibe, full dose aspirin due to history of TIA. Will resume this regimen at discharge
Original Note:
Today's Communication/Plan
-
Discharge to SNF when bed available
Assessment / Plan
Assessment / Plan
#Right hip pain
#Partial tear of the superior gluteal minimus with strains of gluteus medius
-Negative x-ray and CT A/P for fractures; MRI without contrast showed low grade, partial tear
-Failed outpatient analgesics; has improved here with Toradol and other NSAIDs
-Was started on oral PPI due to frequent NSAID administration; renal function stable
-Will need to follow with outpatient orthopedics, plan for course of PT
-Will transition to Tylenol and Toradol 10 mg with oxy 2.5 mg for pain control
#Dyslipidemia
-No known ASCVD history, currently on ezetimibe
DVT prophylaxis: Subcu heparin
Diet: Low-cholesterol
CODE STATUS: Full code
Disposition: Medically stable for discharge to SNF when bed available and insurance approved
Anticipated Discharge: Within 24 hours
Subjective/Interval History
-
Date of Service: February 03, 2025
Seen and examined at the bedside. No acute events reported overnight. AFVSS this morning
Patient states she had significant pain this morning that responded well to combination of Tylenol/Toradol/oxy 2.5. Per nursing has responded well to this regimen
Denies any new complaints today
Objective Data
-
Vital Signs:
Vital Signs
Temp Pulse Resp BP Pulse Ox
97.7 F 66 18 126/57 93
02/03/25 08:22 02/03/25 08:22 02/03/25 08:22 02/03/25 08:22 02/03/25 08:22
I&O
02/02/25 02/03/25 02/04/25
06:59 06:59 06:59
Intake Total 960 / 960 480 / 480
Balance 960 / 960 480 / 480
Review of Systems
-
History Source: Patient
All other systems: Reviewed and negative
Physical Exam
-
General: Well Developed, Well Nourished, No Apparent Distress and Comfortable
HEENT: Normocephalic, Atraumatic and Moist Mucous Membranes
Respiratory: Clear to Auscultation and Non Labored Respirations
Cardiac: Regular Rhythm and S1/S2; Negative Murmur, Rub or Gallop
GI: Soft, Nontender, Nondistended and Normal Bowel Sounds
Musculoskeletal: No Clubbing, No Cyanosis and No Edema
Skin: Warm, Dry and Normal Turgor; Negative Rash
Neuro: AO x 3 and Nonfocal/Grossly Intact; Negative Tremors
Psych: Calm
--- NOTE | 2025-02-03 13:17 | CM ---
Received a call from admissions at [facility] who stated that there is a female bed available today. Spoke with [facility] admissions and spoke with Leonor who also confirmed bed availability for patient today. Spoke with both patient's daughter and
patient and they are both in agreement that they would like for patient to go to [facility]. Spoke about W/C van and cost and patient is agreeable. Will complete transfer sheet and review IMM.
# For report [phone] fax# [phone].
Plan: Case management will continue to follow and assist with discharge planning. Transfer to [facility] today.
--- NOTE | 2025-02-03 14:17 | W.DCSUMMARY ---
Discharge Summary
Discharge Data
Date of Admission: 01/30/25
Date of Discharge: 02/03/25
Total time spent discharging patient (in min): 34
-
Pending Results: No
Hospital Course
Discharging Physician :�Kahlil Holbrook DO
Disposition :���� SNF
Principal Discharge diagnosis :�
Low-grade partial tear of the right gluteus minimus
Right hip discomfort
Ambulatory dysfunction
Chronic Discharge diagnosis :�
Dyslipidemia on PCSK9i
H/O TIA on full dose aspirin
Hospital Course :�
74-year-old female that presented to the hospital with right hip pain that started after she was lifting boxes and other heavy items at home. Initially had mild leukocytosis however normalized during hospital stay, did not have any fevers or signs
of infectious findings. Hip x-ray done prior to arrival on 01/21 showed moderate bilateral osteoarthritis though no acute osseous injuries. CT A/P without IV contrast did not show any acute findings within the abdomen or pelvis nor signs of bone
fractures. An MRI of the right hip performed on that showed signs of low-grade partial-thickness tear in the right gluteus minimus tendon insertion as well as low-grade strain to the inferior aspect of the right [place] medius and minimus
muscles. Spoke with orthopedics, no indication for inpatient operative procedure. Was evaluated by physical therapy and disposition for SNF. Recommend that she continues with as needed analgesic regimen (Tylenol 1 g every 6 hours, Toradol 10 mg
every 6 hours as needed for moderate pain, oxycodone 2.5 mg every 6 hours as needed for severe pain). Given short course of pantoprazole while on NSAID therapy). Should have ongoing physical therapy and follow-up with orthopedics doctor after SNF.
Consultants : N/A
Important imaging findings :�
MRI right hip without contrast (02/01/2025)
FINDINGS: No acute fracture or dislocation. The femoral heads are normal in contour and signal without evidence for osteochondral injury or avascular necrosis. Small bilateral acetabular marginal osteophytes. No significant hip joint effusion or
synovitis. No displaced acetabular labral tear. Chronic degenerative changes of the lower lumbar spine from L3 through S1 including disc space narrowing, disc desiccation and mild STIR hyperintense degenerative endplate signal changes (Modic type
I). Chronic minor degenerative changes involve the bilateral sacroiliac joints and symphysis pubis. No greater trochanteric or iliopsoas bursitis. Low-grade partial-thickness tear at the insertion of the right gluteus minimus tendon. Mild edema at
the inferior aspects of the right gluteus medius and minimus muscles suggesting low-grade muscle strains. Mild edema in the subcutaneous fat of the right lateral hip, nonspecific. The hamstring and rectus femoris tendon origins are intact. The
iliopsoas tendon insertions are intact. The imaged intrapelvic structures are unremarkable.
Procedure findings :� N/A
Follow-up :
Referral provided for orthopedics provider, should contact after discharge from SNF to schedule office visit
Provided short course of Toradol and oxycodone 2.5 mg every 6 hours as needed
Repeat CBC and BMP at SNF in 1 week
Discharge Plan
-
Patient Disposition: [facility]/SNF
Discharge Diagnosis/Procedures: Low-grade partial tear of right gluteus minimus
Ambulatory dysfunction
H/O TIA
H/O HLD on PCSK9i
H/O emphysema
Condition: Good
Diet: No restrictions
Activity: As tolerated
Driving Restrictions: No driving for 24 hours
Bathing Restrictions: None
Blood Work: BMP and CBC 1 week after discharge
Other Services: PT and OT
Activity Restrictions/Additional Instructions:
After discharge from the hospital should have follow-up with family provider. Should be seen in office within 1 to 2 weeks
Referral for orthopedist provided below. Please contact office to schedule follow-up appointment
Referrals:
Froylan Choe MD [Active] - in two to three weeks
Denver Kimble CRNP [Family Provider] -
Additional Discharge Medication Instructions: For mild pain use Tylenol 1 g every 6 hours as needed
For moderate pain use Tylenol 1 g and Toradol 10 mg every 6 hours as needed
For severe pain use Tylenol 1 g with Toradol 10 mg and oxycodone 2.5 mg every 6 hours as needed
Take pantoprazole 40 mg daily while on regimen that includes Toradol
Prescriptions:
New
pantoprazole 40 mg Tablet,Delayed Release (Dr/Ec)
40 mg PO DAILY 30 Days Qty: 30 0RF
ketorolac 10 mg Tablet
10 mg PO Q6HPRN PRN (Reason: Right gluteal pain) 7 Days Qty: 30 0RF
acetaminophen [Tylenol Extra Strength] 500 mg Tablet
1,000 mg PO Q6H PRN (Reason: Pain) 7 Days Qty: 60 0RF
oxycodone 5 mg tablet
2.5 mg PO Q6H PRN (Reason: severe pain) 7 Days Qty: 14 0RF
Continued
aspirin 325 mg Tablet
325 mg PO HS
ezetimibe 10 mg Tablet
10 mg PO HS
coenzyme Q10 [CoQ-10] 100 mg Capsule
100 mg PO DAILY
cholecalciferol (vitamin D3) [Vitamin D3] 50 mcg (2,000 unit) Tablet
50 mcg PO DAILY
omega 2-nvo-vyk-fish oil [Fish Oil] 1,200 (144-216) mg Capsule
1 cap PO BID
Patient Comments:
01/30/25: Patient brought their own brand
multivit with min-folic acid [Multivitamin Gummies] 200 mcg Tablet,Chewable
200 tab PO DAILY
Patient Comments:
01/30/25: Patient brought their own brand
Leqvio 284 mg/1.5 mL Syringe
284 mg SC [id number]
Discontinued
acetaminophen [Tylenol Extra Strength] 500 mg Tablet
1,000 mg PO Q6HPRN PRN (Reason: mild pain)
ibuprofen [Advil] 200 mg Tablet
800 mg PO Q6HPRN PRN (Reason: mild pain)
oxycodone 5 mg tablet
5 mg PO TIDPRN PRN (Reason: severe pain)
Discharge Orders:
Discharge Patient (As Directed); Ordered 02/03/25
Ordered By: Kahlil Holbrook
Discharge Date and Time
Print Language: [place]
[2025-02-03 15:39] VITALS: BP 131/78
== END 2025-02-03 17:53 | DRG 538 ==
LOC: 4 EAST ACU 19:02
PROVIDERS: Physician Assistant; ADMITTING PHYSICIAN Internal Medicine; ATTENDING PHYSICIAN Internal Medicine; EMERGENCY PHYSICIAN Student in an Organized Health Care Education/Training Program; FAMILY PHYSICIAN Registered Nurse
DX: S76.011A Strain of muscle, fascia and tendon of right hip, initial encounter (principal); S70.01XA Contusion of right hip, initial encounter; E78.00 Pure hypercholesterolemia, unspecified; R26.2 Difficulty in walking, not elsewhere classified; E78.5 Hyperlipidemia, unspecified; D72.829 Elevated white blood cell count, unspecified; M47.816 Spondylosis without myelopathy or radiculopathy, lumbar region; W19.XXXA Unspecified fall, initial encounter; Z88.0 Allergy status to penicillin; Z88.8 Allergy status to other drugs, medicaments and biological substances; Z82.49 Family history of ischemic heart disease and other diseases of the circulatory system; Z86.73 Personal history of transient ischemic attack (TIA), and cerebral infarction without residual deficits; Z79.82 Long term (current) use of aspirin
CPT/HCPCS: 73721; 74176; 80048; 80053; 85025; 85027; 96374; 96375; 97116; 97162; 97166; 97530; 97535; 99284

== ENCOUNTER → 2025-02-11 12:22 | Outpatient (REF) | payer MEDICARE, OTHER, SELFPAY ==
[2025-02-11 13:32] LABS: % Basophils 0.6 % (0-2); % Eosinophils 3.1 % (0-6); % Immature Granulocytes 0.4 % (0-0.5); % Lymphocytes 28.7 % (20.5-51.1); % Monocytes 7.4 % (1.7-9.3); % Neutrophils 59.8 % (42.2-75.2); Absolute Basophils 0.1 10^3/uL (0-0.2); Absolute Eosinophils 0.4 10^3/uL (0-0.7); Absolute Immature Granulocytes 0.1 10^3/uL (0-0.05); Absolute Lymphocytes 3.4 10^3/uL (1.2-3.4); Absolute Monocytes 0.9 10^3/uL (0.1-0.6); Hematocrit 35.7 % (37.0-47.0); Hemoglobin 11.8 g/dL (12.0-16.0); Mean Corp Hgb Conc. 33.1 g/dL (33.0-37.0); Mean Corpuscular Hgb 28.2 pg (27.0-31.0); Mean Corpuscular Volume 85.4 fL (81.0-99.0); Mean Platelet Volume 9.6 fL (7.4-10.4); Nucleated Red Blood Cells % 0 %; Platelet Count 414 10^3/uL (130-400); Red Blood Cell Count 4.18 10^6/uL (4.20-5.40); Red Cell Dist. Width 13.3 % (11.5-14.5); White Blood Cell Count 11.7 10^3/uL (4.8-10.8)
[2025-02-11 13:47] LABS: Blood Urea Nitrogen 26 mg/dl (7-17); Calcium 9.4 mg/dl (8.4-10.2); Carbon Dioxide 25 mmol/L (22-30); Chloride 104 mmol/L (98-107); Glucose 103 mg/dl (70-99); Potassium 4.9 mmol/L (3.5-5.1); Sodium 140 mmol/L (135-145); eGFR > 60.00
== END ==
LOC: OLABP 12:22
PROVIDERS: ATTENDING PHYSICIAN Family Medicine
DX: R26.2 Difficulty in walking, not elsewhere classified (principal); E78.5 Hyperlipidemia, unspecified; M25.551 Pain in right hip; Z86.73 Personal history of transient ischemic attack (TIA), and cerebral infarction without residual deficits; J43.9 Emphysema, unspecified; E78.2 Mixed hyperlipidemia
CPT/HCPCS: 36415; 80048; 85025

== ENCOUNTER → 2025-08-23 14:52 | Outpatient (REF) | payer MEDICARE, OTHER, SELFPAY | LOC: RCS 14:52 | PROVIDERS: ATTENDING PHYSICIAN Nurse Practitioner; FAMILY PHYSICIAN Family Medicine | DX: I34.0 Nonrheumatic mitral (valve) insufficiency (principal); E11.9 Type 2 diabetes mellitus without complications; I25.10 Atherosclerotic heart disease of native coronary artery without angina pectoris; R01.1 Cardiac murmur, unspecified | CPT/HCPCS: 93306 ==